=== PATIENT | female | born 1990 | race Caucasian/White ===

== ENCOUNTER 2016-07-05 22:05 | Emergency (ER) | payer BC, OTHER ==
[2016-07-05] MEDS ORDERED: Diphtheria,Pertussis(Acell),Tetanus Vaccine 0.5 ML Syringe IM ONE (22:08)
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
[2016-07-05 23:00] LABS: CHLORIDE,CL 112 mmol/L (98-110); SODIUM,NA 144 mmol/L (136-146)
[2016-07-05] MEDS ORDERED: Silver Sulfadiazine 1% Crm 50 GM Tube TOP ONE (23:11)
[2016-07-06] MEDS ORDERED: Lidocaine 1% 20 ML MDV INJECT ONE (00:09)
[2016-07-06] MEDS ORDERED: Ketorolac 30 MG/ML SDV IVPUSH ONE (00:18)
[2016-07-06 01:07] VITALS: BP 116/67
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
== END 2016-07-06 00:45 | disposition home or self-care (01) ==
LOC: MW.ED 22:05
DX: S01.81XA Laceration without foreign body of other part of head, initial encounter (principal); Y04.0XXA Assault by unarmed brawl or fight, initial encounter; F17.210 Nicotine dependence, cigarettes, uncomplicated; Z98.890 Other specified postprocedural states; Z79.899 Other long term (current) drug therapy; Z88.0 Allergy status to penicillin; Z88.1 Allergy status to other antibiotic agents; Z23 Encounter for immunization
CPT/HCPCS: 12011; 36415; 70450; 70486; 71010; 80053; 81001; 81025; 85025; 90471; 90715; 96374; 99285; A9270; G0478; G0480; J1885; 80305; 99284